=== PATIENT | female | born 1950 | race Caucasian/White ===

== ENCOUNTER 2021-08-04 06:27 | Inpatient (IN) | payer OTHER, SELFPAY ==
[~2021-08-04] VITALS: Ht 162.6 cm; Wt 79.4 kg
[2021-08-04] VITALS (8 sets, daily range): BP systolic 121–139
[2021-08-04] MEDS ORDERED: ASCO500T20 PO (07:38)
[2021-08-04] MEDS ORDERED: OMEG10006 PO (07:38)
[2021-08-04] MEDS ORDERED: AMLO2.5T2 PO (07:38)
[2021-08-04] MEDS ORDERED: LOSA100T3 PO (07:38)
[2021-08-04] MEDS ORDERED: LIP10 PO (07:38)
[2021-08-04] MEDS ORDERED: CEFAZOLIN SOD 2 GM in D5W 50 ML IV ONE (08:15)
[2021-08-04] MEDS ORDERED: BUPIVACAINE LIPOSOME/PF 266 MG/20 ML VIAL INFIL ONE (08:39)
[2021-08-04] MEDS ORDERED: SEVOFLURANE 15 MIN GAS INH ONE (08:50)
[2021-08-04] MEDS ORDERED: SUCCINYLCHOLINE CHLORIDE 20 MG/ML(QUELICIN) ONE (08:50)
[2021-08-04] MEDS ORDERED: ROCURONIUM BROMIDE 10 MG/ML (ZEMURON) ONE (08:50)
[2021-08-04] MEDS ORDERED: ceFAZolin SODIUM 1 GM VIAL ONE (08:50)
[2021-08-04] MEDS ORDERED: ONDANSETRON HCL 4 MG/2 ML VIAL ONE (08:50)
[2021-08-04] MEDS ORDERED: BUPIVACAINE /PF 0.25% 30 ML VIAL INJ ONE (08:50)
[2021-08-04] MEDS ORDERED: NS IRRIG SOLN 1000 ML IR ONE (08:50)
[2021-08-04] MEDS ORDERED: LR 1,000 ML IV.SOLN IV ONE (08:50)
[2021-08-04] MEDS ORDERED: PROPOFOL 200MG/ 20ML VIAL (DIPRIVAN) IV ONE (08:50)
[2021-08-04] MEDS ORDERED: ONDANSETRON HCL 4 MG/2 ML VIAL IVP PRN (09:30)
[2021-08-04] MEDS ORDERED: ACETAMINOPHEN 325 MG TABLET PO ONE (09:30)
[2021-08-04] MEDS ORDERED: HYDROmorphone 1 MG/ML INJ. CARTRIDGE IVP PRN (09:30)
[2021-08-04] MEDS ORDERED: KETOROLAC TROMETHAMINE 30 MG VIAL IVP PRN (09:30)
[2021-08-04] MEDS ORDERED: NALOXONE HCL 0.4 MG/ML AMP (NARCAN) IVP PRN ×2 (09:30→11:45)
[2021-08-04] MEDS ORDERED: ACETAMINOPHEN 325 MG TABLET PO PRN ×2 (11:45)
[2021-08-04] MEDS ORDERED: MORPHINE 4 MG INJ. 4 MG/ML VIAL IVP PRN (11:45)
[2021-08-04] MEDS ORDERED: HYDROcodone/ACETAMIN 5-325 MG TAB (NORCO/ VICODIN) PO PRN (11:45)
[2021-08-04] MEDS: LR 1,000 ML IV SCH ×2 (14:36→21:58)
[2021-08-04] MEDS: CEFAZOLIN 1 GM IVPB PREMIX 50 ML IV SCH ×2 (17:26→23:37)
--- NOTE | 2021-08-04 18:35 | NUR ---
Note Pt came to floor via bed from PACU at 1220pm. Pt was oriented to nursing routines and procedures. Pt's mid abdominal incision intact with surgical dressing and PARK drain. Pt has abdominal binder on. SCD's on bilaterally. IV in right forearm intact and patent infusing IVF's well. Pt denies any pain all shift. Pt was checked on q1' and PRN all shift for needs and care. Pt's daughter Ama has been at bedside throughout the shift to attend to pt's needs and care. Call light within reach. Pt's bed in low position and bed alarm on all shift.
--- NOTE | 2021-08-04 19:30 | NUR ---
CHANGE OF SHIFT; endorsed by day shift, S/P INcisional Hernia repair with Mesh. call light at bedside. bed alarm on.
--- NOTE | 2021-08-04 20:30 | NUR ---
NOTES: pt. checked with family at bedside. pt. speaks little [place], czech speaking. abdominal dressing with binder intact, j jensen x1 with serous bloody drainage, IV site on rt. hand. instructed on deep breathing. needs to call Dr. Mccallum about the diet. call light at bedside.
--- NOTE | 2021-08-04 20:48 | NUR ---
Paged Dr. Mccallum s/vandana Kim
[2021-08-04] MEDS: DOCUSATE SODIUM 100 MG CAPSULE PO SCH (22:00)
--- NOTE | 2021-08-04 22:00 | NUR ---
NOTES: pt. checked, offered pain med but does not want anything. clear liquid started as ordered and will advance as tolerated.
--- NOTE | 2021-08-05 00:15 | NUR ---
NOTES: due IV antibiotic started. repositioned self. needs attended. VS rechecked.
[2021-08-05 00:30] VITALS: BP_SYST 127
[2021-08-05 02:09] VITALS: BP_SYST 135
--- NOTE | 2021-08-05 04:00 | NUR ---
NOTES: condition observed, continue to monitor.
--- NOTE | 2021-08-05 06:36 | NUR ---
CLOSING NOTES; pt. still sleeping. IVF intact and continuous. abdominal dressing and binder in place with Morris jensen x1 patent. for further care and assistance. call light within reach. will advance diet.
[2021-08-05 08:30] VITALS: BP_SYST 111
--- NOTE | 2021-08-05 08:30 | NUR ---
Pt A+Ox4, laying in bed at 0700. Pt denies pain. IV noted to R hand infusing IVF. CSMW satisfactory. No headache, dizziness, chest pain, N+T or edema. Lungs clear. 98% RA. No SOB/cough noted. BSx4. LBM 08/03/21. Void QS. No N+V. ABD binder in place. No drainage. PARK noted- serous drainage noted. IND/SBA with all care. Full liquid diet- will advance if tolerates breakfast. VSS. Med accepting. No other voiced concerns. Will continue to monitor.
[2021-08-05] MEDS: amLODIPine BESYLATE 5 MG TABLET PO SCH (08:42)
[2021-08-05] MEDS: DOCUSATE SODIUM 100 MG CAPSULE PO SCH ×2 (08:44→20:53)
[2021-08-05] MEDS: LOSARTAN POTASSIUM 50 MG TABLET (COZAAR) PO SCH (08:44)
[2021-08-05] MEDS: LR 1,000 ML IV SCH ×2 (08:45→17:45)
--- NOTE | 2021-08-05 11:00 | NUR ---
Advanced to soft diet as patient tolerated breakfast well.
[2021-08-05 12:36] VITALS: BP_SYST 114
--- NOTE | 2021-08-05 12:47 | NUR ---
PATIENT WAS SEEN EARLIER FOR EVALUATION. SHE DEMONSTRATED SBA TO SUPERVISION WITH BED MOBILITY, TRANSFERS, AND GAIT WITH THE FWW X 150 FT. SHE IS SAFE TO AMBULATE WITH NURSING AND FAMILY ASSISTANCE. SHE DOES NOT NEED FURTHER SKILLED PHYSICAL THERAPY.
[2021-08-05 16:16] VITALS: BP_SYST 118
--- NOTE | 2021-08-05 18:19 | NUR ---
Pt sitting up in bed eating dinner, awaiting doctor for possibly discharge home. No voiced concerns. Will continue to monitor.
--- NOTE | 2021-08-05 19:17 | NUR ---
PAGED PAGED DOCTOR SLIME
--- NOTE | 2021-08-05 19:25 | NUR ---
CHANGE OF SHIFT; endorsed by day shift post op day 1 for Incisional hernia repair. no distress. call light within reach.
--- NOTE | 2021-08-05 20:00 | NUR ---
NOTES: Dr. Mccallum called back. got an ok to dc IVF and kept IV lock. pt. able to tolerate liquids.
[2021-08-05 20:15] VITALS: BP_SYST 124
--- NOTE | 2021-08-05 22:30 | NUR ---
NOTES: pt. ambulated in the hallway with walker.
[2021-08-06] VITALS (7 sets, daily range): BP systolic 116–146
--- NOTE | 2021-08-06 00:30 | NUR ---
NOTES: pt. checked and dozing off. no complaints.
[2021-08-06] MEDS: LR 1,000 ML IV SCH (03:45)
--- NOTE | 2021-08-06 06:51 | NUR ---
CLOSING NOTES; pt. already awake, anticipating discharge today. Morris jensen drain @ 30 cc. IV lock patent. no pain. abdominal binder intact. for further care and assist. will endorse to incoming shift. call light within reach.
[2021-08-06] MEDS: DOCUSATE SODIUM 100 MG CAPSULE PO SCH (07:45)
[2021-08-06] MEDS: LOSARTAN POTASSIUM 50 MG TABLET (COZAAR) PO SCH (07:46)
[2021-08-06] MEDS: amLODIPine BESYLATE 5 MG TABLET PO SCH (07:46)
--- NOTE | 2021-08-06 15:51 | NUR ---
Patient: EL GUTIERREZ Provider: VENKATESH ZAMBRANO MD Provider Date and Time: 08/13/2021 08:30 AM Appointment Type: PCP Appointment
--- NOTE | 2021-08-06 15:52 | NUR ---
Discharge appointments and vendors arranged by Juan [facility]. Date and Time: 08/13/2021 08:[address] [facility] Dr. Alessio Romano will call with date and time [facility] [phone] Nursing for [facility] will call and schedule visit. Please call Patient Support Center [phone] for worsening symptoms or trouble getting your medicine. For care needs when provider office is closed, contact Tee [facility] at [phone] or Jim [facility] [place] [phone].
--- NOTE | 2021-08-06 18:03 | NUR ---
Pt sitting up in bed eating dinner, awaiting doctor for possibly discharge home. No voiced concerns. Will continue to monitor.
== END 2021-08-06 18:35 | disposition home health service (06) | DRG 355 ==
LOC: SMU 06:27
PROVIDERS: ADMIT Surgery; ATTEND Surgery
PROC: 0WUF0JZ Supplement Abdominal Wall with Synthetic Substitute, Open Approach (ICD-10-PCS; principal; 2021-08-04 08:50)
DX: K43.2 Incisional hernia without obstruction or gangrene (principal); E78.00 Pure hypercholesterolemia, unspecified; N18.31 Chronic kidney disease, stage 3a; I70.0 Atherosclerosis of aorta; M19.90 Unspecified osteoarthritis, unspecified site; Z20.822 Contact with and (suspected) exposure to COVID-19; E78.5 Hyperlipidemia, unspecified; I12.9 Hypertensive chronic kidney disease with stage 1 through stage 4 chronic kidney disease, or unspecified chronic kidney disease; Z90.49 Acquired absence of other specified parts of digestive tract
CPT/HCPCS: 36415; 87081; 88302; C1781; C9290; J0330; J0690; J2405; J2704; J3490; J7060; J7120; U0003